=== PATIENT | male | born 1955 | race Caucasian/White ===

== ENCOUNTER 2016-12-06 11:17 | Observation (INO) | payer BC ==
[2016-12-06] MEDS ORDERED: Aspirin Low Dose CHEW TAB* 81 MG PO ONE (12:50)
--- NOTE | 2016-12-06 13:20 | RAD ---
INDICATION: Chest pain COMPARISON: None TECHNIQUE: An AP portable view obtained at 1300 hours is submitted. FINDINGS: Bones/Soft Tissues: There are no acute bony findings. Cardiomediastinal: The cardiomediastinal silhouette is normal. Lungs: There are no infiltrates. Pleura: There are no pleural effusions. Other: None IMPRESSION: NO ACTIVE DISEASE
[2016-12-06 13:27] LABS: Hematocrit 41 % (42-52); Hemoglobin 13.6 g/dl (14.0-18.0); Mean Corpuscular HGB Conc 33 g/dl (31-36); Mean Corpuscular Hemoglobin 29 pg (27-31); Mean Corpuscular Volume 87 fL (80-94); Mean Platelet Volume 8 um3 (7.4-10.4); Red Blood Count 4.68 10^6/ul (4.0-5.4); Red Cell Distribution Width 14 % (10.5-15); White Blood Count 8.2 10^3/ul (3.5-10.8)
[2016-12-06 13:44] LABS: BUN/Creatinine Ratio 25.4 (8-20); Calcium 9.1 mg/dL (8.6-10.3); EGFR African American 155.6 (>60); Globulin 3.1 g/dL (2-4); Magnesium 1.9 mg/dL (1.9-2.7); Potassium 3.8 mmol/L (3.5-5.0); Total Bilirubin 0.4 mg/dL (0.2-1.0); Total Protein 7.1 g/dL (6.4-8.9)
[2016-12-06 13:46] LABS: Troponin I 0.01 ng/mL (<0.04)
[2016-12-06 14:26] LABS: TSH (Thyroid Stimulating Horm) 2.13 mcIU/mL (0.34-5.60)
[2016-12-06] MEDS ORDERED: Clopidogrel TAB* 300 MG PO ONE (16:37)
[2016-12-06] MEDS ORDERED: Diazepam TAB(*) 5 MG PO PRN (16:40)
[2016-12-06] MEDS ORDERED: Nitroglycerin TAB 0.4 MG* 0.4 MG TAB SL PRN (16:40)
[2016-12-06] MEDS ORDERED: Atorvastatin* 80 MG TAB PO SCH (17:00)
[2016-12-06] MEDS: Enoxaparin(*) 150 MG/ML 1 ML SYRINGE SUBCUT SCH (17:56)
--- NOTE | 2016-12-06 18:06 | ED ---
Aundrea Tapia Matthew, scribed for Vinay Betancourt MD on 12/06/16 at 1349 . HPI Chest Pain - HPI Summary HPI Summary: A 61 y/o male presents to the ED with intermittent mid-sternal chest pain since a week ago. He had 4 episodes of chest pain on 12/04 and saw his PCP who scheduled a stress test for 12/08. He had no chest pain on 12/05. Today, he had two episodes of chest pain this morning, which radiates across the shoulder, up the neck, and down the left arm. The pain is rated 6-7/10 in severity and is worsening with each episode. The pain is described as pressure. The chest pain is worse with exertion. When he rests the pain alleviates. He took a nitro, which relieved the pain. Associated symptoms include SOB w/ exertion and diaphoresis. The patient denies dizziness, nausea, and vomiting. PMHx of HTN, HLD. No Diabetes. SHx of hip and knee surgery. FHx of HTN. - History of Current Complaint Chief Complaint: EDChestPainROMI Time Seen by Provider: 12/06/16 12:44 Hx Obtained From: Patient Onset/Duration: Started Days Ago, Atraumatic, Still Present Timing: Intermittent Initial Severity: Moderate Current Severity: Moderate Pain Intensity: 8 Pain Scale Used: 0-10 Numeric Chest Pain Location: Mid Sternal Chest Pain Radiates: Yes Chest Pain Radiates To:: Shoulder, Arm - LT, Neck Character: Pressure/Squeezing Aggravating Factor(s): Exertion Alleviating Factor(s): Rest, NTG 123 Associated Signs and Symptoms: Positive: Chest Pain, Shortness of Breath - w/ exertion, Diaphoresis. Negative: Dizziness, Nausea, Vomiting - Allergy/Home Medications Allergies/Adverse Reactions: Allergies Allergy/AdvReac Type Severity Reaction Status Date / Time No Known Allergies Allergy Verified 12/06/16 11:18 Home Medications: Home Medications Diazepam TAB(*) [Valium TAB(*)] 5 mg PO BID PRN 12/06/16 [History Confirmed ] Lisinopril/HCTZ 20/12.5(NF) [Zestoretic 20/12.5(NF)] 1 tab PO DAILY 12/06/16 [ History Confirmed 12/06/16] Metoprolol Succinate XL TAB* [Toprol XL TAB*] 50 mg PO DAILY 12/06/16 [History Confirmed 12/06/16] Nitroglycerin TAB 0.4 MG* 0.4 mg SL Q5M PRN 12/06/16 [History Confirmed 12/06/16 ] Omeprazole CAP* [Prilosec CAP* 20 MG] 20 mg PO DAILY 12/06/16 [History Confirmed 12/06/16] PMH/Surg Hx/FS Hx/Imm Hx Cardiovascular History: Reports: Hx Hypercholesterolemia, Hx Hypertension Infectious Disease History: Denies: Traveled Outside the [place] in Last 30 Days - Family History Known Family History: Positive: Hypertension - Social History Alcohol Use: Occasionally Hx Substance Use: No Substance Use Type: Reports: None Hx Tobacco Use: No Smoking Status (MU): Never Smoked Tobacco Review of Systems Positive: Skin Diaphoresis Eyes: Negative ENT: Negative Positive: Chest Pain Positive: Shortness Of Breath - w/ exertion Gastrointestinal: Negative Negative: Vomiting, Nausea Genitourinary: Negative Musculoskeletal: Negative Skin: Negative Neurological: Negative Psychological: Normal All Other Systems Reviewed And Are Negative: Yes Physical Exam - Summary Physical Exam Summary: VITAL SIGNS: Reviewed. GENERAL: Patient is a well developed and nourished male who is lying comfortable in the stretcher. Patient is not in any acute respiratory distress. HEAD AND FACE: No signs of trauma. No ecchymosis, hematomas or skull depressions. No sinus tenderness. EYES: PERRLA, EOMI x 2, No injected conjunctiva, no nystagmus. EARS: Hearing grossly intact. Ear canals and tympanic membranes are within normal limits. MOUTH: Oropharynx within normal limits. NECK: Supple, trachea is midline, no adenopathy, no JVD, no carotid bruit, no c- spine tenderness, neck with full ROM. CHEST: Symmetric, no tenderness at palpation LUNGS: Clear to auscultation bilaterally. No wheezing or crackles. CVS: Regular rate and rhythm, S1 and S2 present, no murmurs or gallops appreciated. ABDOMEN: Soft, non-tender. No signs of distention. No rebound no guarding, and no masses palpated. Bowel sounds are normal. EXTREMITIES: FROM in all major joints, no edema, no cyanosis or clubbing. NEURO: Alert and oriented x 3. No acute neurological deficits. Speech is normal and follows commands. SKIN: Dry and warm Triage Information Reviewed: Yes Vital Signs On Initial Exam: Initial Vitals Temp Pulse Resp BP Pulse Ox 96.9 F 72 16 165/94 94 12/06/16 11:20 12/06/16 11:20 12/06/16 11:20 12/06/16 11:20 12/06/16 11:20 Vital Signs Reviewed: Yes Diagnostics - Vital Signs Vital Signs Temp Pulse Resp BP Pulse Ox 12/06/16 11:20 96.9 F 72 16 165/94 94 - Laboratory Lab Results: Lab Results 12/06/16 12/06/16 12/06/16 Range/Units 13:19 13:19 13:19 WBC 8.2 (3.5-10.8) 10^3/ul RBC 4.68 (4.0-5.4) 10^6/ul Hgb 13.6 L (14.0-18.0) g/dl Hct 41 L (42-52) % MCV 87 (80-94) fL MCH 29 (27-31) pg MCHC 33 (31-36) g/dl RDW 14 (10.5-15) % Plt Count 221 (150-450) 10^3/ul MPV 8 (7.4-10.4) um3 Neut % (Auto) 73.6 (38-83) % Lymph % (Auto) 17.8 L (25-47) % Real % (Auto) 6.2 (1-9) % Eos % (Auto) 1.6 (0-6) % Baso % (Auto) 0.8 (0-2) % Absolute Neuts (auto) 6.0 (1.5-7.7) 10^3/ul Absolute Lymphs (auto) 1.5 (1.0-4.8) 10^3/ul Absolute Monos (auto) 0.5 (0-0.8) 10^3/ul Absolute Eos (auto) 0.1 (0-0.6) 10^3/ul Absolute Basos (auto) 0.1 (0-0.2) 10^3/ul Absolute Nucleated RBC 0 10^3/ul Nucleated RBC % 0 APTT (26.0-36.3) seconds Sodium 137 (133-145) mmol/L Potassium 3.8 (3.5-5.0) mmol/L Chloride 102 (101-111) mmol/L Carbon Dioxide 28 (22-32) mmol/L Anion Gap 7 (2-11) mmol/L BUN 17 (6-24) mg/dL Creatinine 0.67 (0.67-1.17) mg/dL Est GFR ( Amer) 155.6 (>60) Est GFR (Non-Af Amer) 121.0 (>60) BUN/Creatinine Ratio 25.4 H (8-20) Glucose 108 H (70-100) mg/dL Lactic Acid 1.3 (0.5-2.0) mmol/L Calcium 9.1 (8.6-10.3) mg/dL Magnesium 1.9 (1.9-2.7) mg/dL Total Bilirubin 0.40 (0.2-1.0) mg/dL AST 24 (13-39) U/L ALT 28 (7-52) U/L Alkaline Phosphatase 56 (34-104) U/L Total Creatine Kinase 373 H (10-223) U/L CK-MB (CK-2) 24.5 H (0.6-6.3) ng/mL Myoglobin 69.6 (17.4-105.7) ng/mL Troponin I 0.01 (<0.04) ng/mL B-Natriuretic Peptide ( - 100) pg/mL Total Protein 7.1 (6.4-8.9) g/dL Albumin 4.0 (3.2-5.2) g/dL Globulin 3.1 (2-4) g/dL Albumin/Globulin Ratio 1.3 (1-3) TSH 2.13 (0.34-5.60) mcIU/mL 12/06/16 12/06/16 12/06/16 Range/Units 13:19 13:19 15:25 WBC (3.5-10.8) 10^3/ul RBC (4.0-5.4) 10^6/ul Hgb (14.0-18.0) g/dl Hct (42-52) % MCV (80-94) fL MCH (27-31) pg MCHC (31-36) g/dl RDW (10.5-15) % Plt Count (150-450) 10^3/ul MPV (7.4-10.4) um3 Neut % (Auto) (38-83) % Lymph % (Auto) (25-47) % Real % (Auto) (1-9) % Eos % (Auto) (0-6) % Baso % (Auto) (0-2) % Absolute Neuts (auto) (1.5-7.7) 10^3/ul Absolute Lymphs (auto) (1.0-4.8) 10^3/ul Absolute Monos (auto) (0-0.8) 10^3/ul Absolute Eos (auto) (0-0.6) 10^3/ul Absolute Basos (auto) (0-0.2) 10^3/ul Absolute Nucleated RBC 10^3/ul Nucleated RBC % APTT 33.1 (26.0-36.3) seconds Sodium (133-145) mmol/L Potassium (3.5-5.0) mmol/L Chloride (101-111) mmol/L Carbon Dioxide (22-32) mmol/L Anion Gap (2-11) mmol/L BUN (6-24) mg/dL Creatinine (0.67-1.17) mg/dL Est GFR ( Amer) (>60) Est GFR (Non-Af Amer) (>60) BUN/Creatinine Ratio (8-20) Glucose (70-100) mg/dL Lactic Acid (0.5-2.0) mmol/L Calcium (8.6-10.3) mg/dL Magnesium (1.9-2.7) mg/dL Total Bilirubin (0.2-1.0) mg/dL AST (13-39) U/L ALT (7-52) U/L Alkaline Phosphatase (34-104) U/L Total Creatine Kinase (10-223) U/L CK-MB (CK-2) (0.6-6.3) ng/mL Myoglobin (17.4-105.7) ng/mL Troponin I 0.01 (<0.04) ng/mL B-Natriuretic Peptide 23 ( - 100) pg/mL Total Protein (6.4-8.9) g/dL Albumin (3.2-5.2) g/dL Globulin (2-4) g/dL Albumin/Globulin Ratio (1-3) TSH (0.34-5.60) mcIU/mL Result Diagrams: 12/06/16 13:19 12/06/16 13:19 Lab Statement: Any lab studies that have been ordered have been reviewed, and results considered in the medical decision making process. - Radiology CXR Xray Interpretation: No Acute Changes - IMPRESSION: NO ACTIVE DISEASE Radiology Interpretation Completed By: Radiologist - EKG 11:22 Cardiac Rate: NL - 70 bpm EKG Rhythm: Sinus Rhythm EKG Interpretation: NO ST elevation Chest Pain Course/Dx - Course Assessment/Plan: A 61 y/o male presents to the ED with intermittent mid-sternal chest pain since a week ago. He had 4 episodes of chest pain on 12/04 and saw his PCP who scheduled a stress test for 12/08. He had no chest pain on 12/05. Today, he had two episodes of chest pain this morning, which radiates across the shoulder, up the neck, and down the left arm. The pain is rated 6-7/10 in severity and is worsening with each episode. The pain is described as pressure. The chest pain is worse with exertion. When he rests the pain alleviates. He took a nitro, which relieved the pain. Associated symptoms include SOB w/ exertion and diaphoresis. The patient denies dizziness, nausea, and vomiting. PMHx of HTN, HLD. No Diabetes. SHx of hip and knee surgery. FHx of HTN. Blood work WNL expect slight anemia. Troponin 1 was 0.01. CK-MB of 24.5. EKG shows NSR without ST elevations. CXR shows no active disease. However, the patients symptoms are on exertion so I believe he has stable angina. Therefore, I discussed my physical exam findings with Dr. Carter who accepted the patient for admission. He is hemodynamically stable and A&Ox3. - Chest Pain Differential Diagnosis/HQI/PQRI: Acute CO, ACS, Angina, CHF, Chest Wall, GI Disease, Lower Respiratory Infection - Diagnoses Provider Diagnoses: Stable angina - Provider Notifications Discussed Care Of Patient With: Dr. Carter (Hospitalist) at 16:02 -- Notified of patient's history and will admit the patient. Discharge - Discharge Plan Condition: Stable Disposition: ADMITTED TO [facility] The documentation as recorded by the Aundrea vargas Matthew accurately reflects the service I personally performed and the decisions made by , Vinay Betancourt MD.
[2016-12-06 19:49] LABS: Urine Bilirubin Negative (Negative); Urine Glucose Negative (Negative); Urine Nitrite Negative (Negative)
--- NOTE | 2016-12-06 21:28 | HP ---
HISTORY AND PHYSICAL: DATE OF ADMISSION: 12/06/16 PRIMARY CARE PHYSICIAN: Dr. Miles. CHIEF COMPLAINT: Exertional chest pain. HISTORY OF PRESENT ILLNESS: Mr. Brewer is a 61-year-old man with past medical history of hypertension, obesity, GERD, who presents to the hospital with 3 weeks of intermittent chest discomfort. The patient states he has been having about 3 weeks of chest discomfort that seems to come on with exertion. He describes as a tightness or pressure that originates in the left chest and spreads across both sides, also noticed some symptoms in the shoulder that he says also feels like a tightness or numbness and some bilateral finger tingling. He gets associated shortness of breath with these symptoms as well and more recently 2 days ago and more specifically today, has been having more significant diaphoresis with the symptoms. He states that it seems to happen more with walking long distances. He said also few weeks ago, he was riding a bike to visit his at work and noticed severe symptoms by the time he got there. He states he saw his PCP, Dr. Miles, 2 days ago and had an EKG done there that was reported as normal, was prescribed some nitroglycerin, and scheduled for a stress test in 2 days. The patient states that he has had a stress test about 5 years ago that was normal. 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 He noticed the chest discomfort and some diaphoresis. He rested and the symptoms resolved. He then got up and walked across the grocery store and after certain amount of distance , the symptoms recurred. He took a nitro which relieved the symptoms. Due to progression of them and concern about the possible heart problem, he came to the emergency room for further evaluation. PAST MEDICAL HISTORY: Hypertension, GERD, obesity. PAST SURGICAL HISTORY: Left REYNA, 2015; meniscus repair; toe surgery. HOME MEDICATIONS: 1. Omeprazole 20 mg by mouth daily. 2. Valium 5 mg by mouth 2 times daily as needed for anxiety. 3. Toprol-XL 50 mg by mouth daily. 4. Nitroglycerin 0.4 mg sublingual every 5 minutes as needed for angina. 5. Lisinopril/HCTZ 20/12.5 mg 1 tablet by mouth daily. The patient reportedly was told to stop his Mobic and his aspirin within the past few days due to concern for possible GI symptoms. ALLERGIES: The patient reports no known drug allergies. FAMILY HISTORY: Significant for father who had CAD, then CA at age 61. Mother with bladder cancer. SOCIAL HISTORY: The patient never smoked cigarettes. He says he may have up to 1 beer a week, occasional marijuana use, no cocaine use. REVIEW OF SYSTEMS: A 12-point review of systems negative except for that as noted in the HPI. PHYSICAL EXAMINATION GENERAL: The patient is a middle-aged, obese, male, lying in bed, in no apparent distress. VITAL SIGNS: On admission, temperature 96.9, heart rate is 72, respiratory rate is 16, O2 saturation 94% on room air, blood pressure 165/94. HEENT: Head normocephalic, atraumatic. Eyes: Pupils equal, round, and reactive to light and accommodation. Anicteric sclerae. ENT: No cervical adenopathy. No posterior oropharyngeal erythema. LUNGS: Clear to auscultation bilaterally. No wheezes, rales, or rhonchi. CARDIOVASCULAR: Regular rate and rhythm. S1, S2 present. No murmurs, gallops or rubs. ABDOMEN: Soft, nontender, nondistended. Bowel sounds positive. EXTREMITIES: No cyanosis, clubbing, or edema. NEURO: The patient is alert and oriented x3. No focal neurological deficits. DIAGNOSTIC STUDIES/LAB DATA: White blood cell count of 8.2, hematocrit 41, platelets of 221. APTT of 33.1. Sodium of 137, potassium 3.8, chloride of 102 , carbon dioxide 28, BUN of 17, creatinine 0.67, glucose of 108, lactate of 1.3. LFTs within normal limits. Calcium 9.1. CK of 373, CK-MB of 24.5. Troponin of 0.01 x2. B-natriuretic peptide 23. TSH of 2.13. EKG: Personally reviewed shows normal sinus rhythm. Chest x-ray: Personally reviewed shows no active disease. ASSESSMENT AND PLAN: Unstable angina in a 61-year-old male with past medical history of obesity, hypertension, and gastroesophageal reflux disease. 1. Unstable angina. Symptoms very concerning for cardiac cause. The patient received 324 of aspirin here in the emergency room. We will continue 81 mg daily. We will load the patient with 300 mg of Plavix and continue 75 mg by mouth daily. We will start atorvastatin 80 mg by mouth daily. We will start therapeutic Lovenox. Schedule the patient for a stress test tomorrow morning. Continue his home beta jurgen, which he took this morning. 2. Hypertension. Medications as above. We will also continue the patient's home lisinopril/HCTZ. 3. Gastroesophageal reflux disease. We will hold PPI in the setting of Plavix , will use famotidine instead. 4. DVT prophylaxis. Lovenox subcu. 5. Code status. The patient is a full code. TIME SPENT: Total time spent on this admission 45 minutes with over half the time spent [id number] with the patient, counseling, and coordinating care. CC: Dr. Miles * [id number]/[facility] #: [id number] REYES
[2016-12-07 05:11] LABS: HDL Cholesterol 29.8 mg/dL
[2016-12-07] MEDS: Enoxaparin(*) 150 MG/ML 1 ML SYRINGE SUBCUT SCH (05:32)
[2016-12-07] MEDS ORDERED: Aspirin EC Low Dose* 81 MG TAB.EC PO SCH (09:00)
[2016-12-07] MEDS ORDERED: Metoprolol Succinate XL TAB* 50 MG PO SCH ×2 (09:00→10:04)
[2016-12-07] MEDS ORDERED: Famotidine TAB* 20 MG PO SCH (09:00)
[2016-12-07] MEDS ORDERED: Lisinopril TAB* 10 MG PO SCH (09:00)
[2016-12-07] MEDS ORDERED: CMCS:Pantoprazole TAB (NF) 40 MG TAB PO SCH (09:00)
[2016-12-07] MEDS ORDERED: Clopidogrel TAB* 75 MG PO SCH (09:00)
[2016-12-07] MEDS ORDERED: Hydrochlorothiazide TAB* 25 MG PO SCH (09:00)
--- NOTE | 2016-12-07 10:22 | RAD ---
Edited for charges. INDICATION: Exertional chest pain. Shortness of breath, hypertension, elevated cholesterol, obesity, family history of heart disease. COMPARISON: No relevant prior exams available on the [facility] PACS for comparison. TECHNIQUE: 10.400 mCi of Tc-99m Myoview were administered IV. SPECT images of the heart were obtained. Later on the same day, under the direction of Dr. Eddy, an exercise stress test was performed. The patient achieved a peak heart rate of 156 bpm, 98 % of the age- predicted maximum. Subsequently, the patient was given an IV injection of 25.960 mCi Tc- 99m Myoview. SPECT images of the heart were obtained and a gated wall motion study was performed. No CT for attenuation due to large body habitus with decreased range of motion of the arms. FINDINGS: Gated wall motion images were obtained at stress and demonstrate hypokinesia most marked at the septum. The calculated left ventricular ejection fraction is 49 % at stress. Estimated LEFT ventricular end diastolic volume is 110 mL. TID 0.98. Absence of CT for attenuation correction and large body habitus limits image quality. While a component of diaphragmatic attenuation is possible there is greater magnitude decreased uptake at the mid to basilar inferior wall with extension to the inferior portion of both the septum and lateral wall at stress compared with rest concerning for potential ischemia. Diaphragmatic attenuation alone should not produce discrepant artifact on the stress versus the rest images. IMPRESSION: While absence of CT for attenuation correction limits assessment the constellation of findings is concerning for potential ischemia involving the mid to basilar inferior wall with extension to the inferior aspect of both the septum and lateral kim. Hypokinesia with mildly decreased estimated LEFT ventricular ejection fraction. ASSESSMENT: INTERMEDIATE RISK. Based on imaging criteria from ACC/AHA 2002 Guideline Update for the Management of Patients With Chronic Stable Angina Table 23. Noninvasive Risk Stratification. MTDD
[2016-12-07 10:42] LABS: BUN/Creatinine Ratio 20.5 (8-20); Calcium 9.1 mg/dL (8.6-10.3); EGFR African American 121.5 (>60); EGFR Non-African American 94.5 (>60); Potassium 3.7 mmol/L (3.5-5.0)
[2016-12-07] MEDS ORDERED: Potassium Chlor TAB* 20 MEQ TAB.ER PO ONE (10:47)
[2016-12-07] MEDS ORDERED: Magnesium Sulfate 2 GM IV* 2 GM/50 ML BAG IVPB ONE (10:47)
--- NOTE | 2016-12-07 11:05 | PN ---
Subjective Date of Service: 12/07/16 Interval History: Patient seen this morning. No recurrence of chest pressure overnight, no chest pain. Reported some discomfort with the stress test this AM. No SOB. Family History: Unchanged from Admission Social History: Unchanged from Admission Past Medical History: Unchanged from Admission Objective Active Medications: Aspirin (Aspirin Ec Low Dose*) 81 mg PO DAILY [facility] Atorvastatin Calcium (Lipitor*) 80 mg PO 1700 [facility] Clopidogrel Bisulfate (Plavix Tab*) 75 mg PO DAILY [facility] Diazepam (Valium Tab(*)) 5 mg PO BID PRN Enoxaparin Sodium (Lovenox(*)) 120 mg SUBCUT Q12H [facility] Famotidine (Pepcid Tab*) 20 mg PO DAILY [facility] Hydrochlorothiazide (Hydrodiuril Tab*) 12.5 mg PO DAILY [facility] Magnesium Sulfate (Magnesium Sulfate 2 Gm Iv*) 2 gm in 50 mls @ 50 mls/hr IVPB ONCE ONE Lisinopril (Prinivil Tab*) 20 mg PO DAILY [facility] Metoprolol Succinate (Toprol Xl Tab*) 100 mg PO DAILY [facility] Nitroglycerin (Nitroglycerin Tab 0.4 Mg*) 0.4 mg SL Q5M PRN Vital Signs 12/06/16 12/06/16 12/06/16 16:19 16:30 17:00 Temperature Pulse Rate 65 66 68 Respiratory 22 22 15 Rate Blood Pressure 222/116 (mmHg) O2 Sat by Pulse 95 95 96 Oximetry 12/06/16 12/06/16 12/06/16 17:30 20:00 23:47 Temperature 98.0 F 97.9 F 98.2 F Pulse Rate 68 70 69 Respiratory 16 20 16 Rate Blood Pressure 181/103 150/89 135/65 (mmHg) O2 Sat by Pulse 95 93 94 Oximetry 12/07/16 03:58 Temperature 97.6 F Pulse Rate 64 Respiratory 16 Rate Blood Pressure 142/84 (mmHg) O2 Sat by Pulse 91 Oximetry Oxygen Devices in Use Now: None Appearance: Middle-aged, obese, M, laying in bed in NAD Eyes: No Scleral Icterus Ears/Nose/Mouth/Throat: Mucous Membranes Moist Neck: NL Appearance and Movements; NL JVP Respiratory: Symmetrical Chest Expansion and Respiratory Effort, Clear to Auscultation Cardiovascular: NL Sounds; No Murmurs; No JVD, RRR Abdominal: NL Sounds; No Tenderness; No Distention Lymphatic: No Cervical Adenopathy Extremities: No Edema Skin: No Rash or Ulcers Neurological: Alert and Oriented x 3 Result Diagrams: 12/06/16 13:19 12/07/16 10:06 Assess/Plan/Problems-Billing Assessment: Unstable angina in a 61 yo M with hx of HTN, obesity, GERD - Patient Problems (1) Unstable angina Current Visit: Yes Comment: Stress test shows some areas concerning for ischemia. Continue ASA, plavix, statin, metoprolol, lovenox. Cardiology consulted, may need cath. Continue to monitor on tele. Had few beats of NSVT, replete K, Mg. (2) HTN (hypertension) Current Visit: Yes Comment: Continue Metoprolol, Lisinopril, HCTZ (3) GERD (gastroesophageal reflux disease) Current Visit: Yes Comment: Famotidine in place of PPI while on Plavix (4) DVT prophylaxis Current Visit: Yes Comment: Lovenox Status and Disposition: Inpatient for ACS
[2016-12-07 12:16] VITALS: BP 161/94
--- NOTE | 2016-12-07 21:52 | CONS ---
INTERVENTIONAL CARDIOLOGY CONSULT NOTE: DATE OF CONSULT: 12/07/16 PRIMARY CARE PHYSICIAN: Dr. Miles. HISTORY OF PRESENT ILLNESS: A 61-year-old male admitted with slowly progressive angina. After stress imaging, Interventional Cardiology was consulted. He is an excellent historian. He relates about 2 to 3 weeks of slowly progressive functional class 2 angina with fairly typical symptoms with precordial discomfort, sometimes radiating to the shoulders, brought on by physical activity. He has never had any at rest, has not had prolonged episodes. He had been on aspirin, Toprol XL 50, and lisinopril 20 with hydrochlorothiazide, but his blood pressure had by history not been well controlled. For the past several weeks, the anginal threshold has decreased slightly and frequency has increased slightly. He has not had rest pain, heart failure symptoms. His limitation has been primarily exertional dyspnea. He has a trouble with weight control. PAST MEDICAL HISTORY: Hypertension, morbid obesity, GERD, and hyperlipidemia. MEDICATIONS: Prehospital medications: 1. Prilosec 20 mg daily. 2. Toprol XL 50 daily. 3. Nitro 0.4 sublingual p.r.n. 4. Lisinopril/hydrochlorothiazide 20/12.5 daily. ALLERGIES: None. FAMILY HISTORY: Positive for heart disease in his father with an MA at 60. SOCIAL HISTORY: He is a nonsmoker. He works at [employer]: General: No weight loss and no fevers. 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 GI: No peptic ulcer disease or bleeding. : Negative. Circulatory: No history of claudication. Heme: No history of bleeding or anemia. Remainder all negative. PHYSICAL EXAM: He is obese, weighs 270 pounds. Admission BP 165/94 with a heart rate of 72 on Toprol XL 50. His lungs today are clear to percussion and auscultation. JVP and carotids are normal without bruits. There is no thyromegaly. Neck is supple. HEENT is unremarkable without scleral injection or jaundice, EOMs are normal. Cranial nerves are grossly intact. Chest Exam: Addison nonpalpable, no tenderness. Heart sounds are normal. No gallop, murmur, or rub. Abdomen is obese and nontender without bruit. I cannot feel the aorta. Radial, femoral, and pedal pulses are palpable. He has at most trace edema, has no cyanosis or clubbing. Skin: Warm and perfused. Psych: He is oriented appropriately. DIAGNOSTIC STUDIES/LAB DATA: EKG is normal. Chest x-ray is normal. Troponin 0.01, 0.01. BNP normal at 23. Hemoglobin A1c upper limit of normal at 5.9. Random blood sugar 160. Normal CBC and electrolytes. Cholesterol 248, triglycerides 347, LDL 149, HDL 29.8, on no statin. His stress test was limited by dyspnea and associated with angina with onset in stage [address] changes until recovery. He exercised for slightly over 8 minutes. Nuclear imaging was read as showing a possible inferolateral defect, but he did not have attenuation correction. When I reviewed the raw images, there is typical shadowing over the inferolateral left ventricle, increase in likelihood of false positive scan. He has an intermediate Borrero score, has been on submaximal medical therapy. His symptoms are essentially stable. We have discussed increasing his medical management, curtailing strenuous activity for several days with a followup next week. If he does not have limiting symptoms on maximal medical therapy, he will continue with medical management. If he fails medical management, he will proceed to catheterization and possible revascularization. This was all discussed with him. We have reviewed the use of nitroglycerin, the need to report accelerating symptoms. We also discussed the need for risk factor modification and he is interested in cardiac rehab. He is currently stable, from my perspective can be discharged to outpatient followup today. CC: Dr. Miles* [id number]/[facility] #: [id number] REYES
--- NOTE | 2016-12-08 03:01 | DS ---
DISCHARGE SUMMARY: DATE OF ADMISSION: 12/06/16 DATE OF DISCHARGE: 12/07/16 PRIMARY CARE PHYSICIAN: Dr. Miles. PRINCIPAL DISCHARGE DIAGNOSIS: Angina, likely stable. SECONDARY DIAGNOSES: 1. Hypertension. 2. Obesity. 3. Hyperlipidemia. STUDIES DONE DURING HOSPITALIZATION: Chest x-ray. Impression: No active disease. Nuclear cardiac stress test. Impression: Absence in CT for attenuation, correction limits. Assessment: The constellation of findings concerning for potential ischemia involving the mid to basilar inferior wall with extension to the inferior aspect of both the septum and lateral kim, hypokinesia with mildly decreased estimated left ventricular ejection fraction. Assessment: Intermediate risk. DISCHARGE MEDICATION REGIMEN: 1. Aspirin 81 mg by mouth daily. 2. Atorvastatin 80 mg by mouth daily. 3. Plavix 75 mg by mouth daily. 4. Famotidine 20 mg by mouth daily. 5. Toprol XL 100 mg by mouth daily. 6. Lisinopril/hydrochlorothiazide 20/12.5 one tablet by mouth daily. 7. Nitroglycerin 0.4 mg sublingual every 5 minutes as needed for chest pain. 8. Diazepam 5 mg by mouth 2 times daily as needed for anxiety. CONSULTANTS DURING HOSPITALIZATION: Génesis Eddy MD, Cardiology. HPI AND HOSPITAL SUMMARY: Please see my full history and physical for full details. Briefly, Mr. Brewer is a 61-year-old man with the past medical history as above who presented to the hospital with intermittent exertional chest discomfort. Symptoms have been going on for a few weeks associated with shortness of breath and diaphoresis. The patient was scheduled for a stress test as an outpatient; however, due to his symptoms, decided to come to the hospital for further evaluation. The patient was started on treatment for acute coronary syndrome as initially this was felt to possibly be unstable angina. He was given aspirin, Plavix, statin, Lovenox, and his home beta- jurgen was continued. He was monitored on tele and no concerning arrhythmias other than a very short run of NSVT. Troponins remained negative. He underwent a cardiac stress test with results as above. Dr. Eddy evaluated the patient and felt like his symptoms were more consistent with a stable angina and felt that we should pursue maximum medical therapy prior to any interventions. He will follow up with the patient in 1 week. The patient is also encouraged to follow up with his PCP. TIME SPENT: Total time spent on this discharge, 45 minutes. This is just a summary of the hospitalization, please see the full medical record for further details. CC: Dr. Miles; Génesis Eddy MD* [id number]/[facility] #: [id number] MTDD
== END 2016-12-07 13:40 | disposition home or self-care (01) ==
LOC: ED 11:17 → MEDTELE 16:02 → INTOOBSV 12-07 10:54 → OBSVTOIN 12-07 10:54
PROVIDERS: ADMIT Hospitalist; ATTEND Hospitalist
DX: I20.9 Angina pectoris, unspecified (principal); I10 Essential (primary) hypertension; E66.9 Obesity, unspecified; E78.5 Hyperlipidemia, unspecified; R06.02 Shortness of breath; Z79.899 Other long term (current) drug therapy
CPT/HCPCS: 36415; 71010; 78452; 80048; 80053; 80061; 81003; 82550; 82553; 83036; 83605; 83735; 83874; 83880; 84443; 84484; 85025; 85730; 93005; 93017; 96365; 99283; A9270-GY; A9502; G0378; J1650